=== PATIENT | male | born 1990 | race Caucasian/White ===

== ENCOUNTER 2018-11-22 12:06 | Emergency (ER) | payer SELFPAY ==
[2018-11-22] MEDS ORDERED: IBUPROFEN 800 MG TABLET PO ONE (12:27)
--- NOTE | 2018-11-22 12:29 | ER Document Report ---
ED Medical Screen (RME) - General Chief Complaint: Flu Symptoms Stated Complaint: CHEST/STOMACH PAIN/DIZZINESS Time Seen by Provider: 11/22/18 12:24 - HPI Notes: 11/22/18 12:28 Patient is a 28-year-old male who presents complaining of nasal congestion/discharge, body ache, semi-productive cough, feverish for the past 3 days. Patient states that he does have some soreness in his chest only with coughing. I have treated and performed a rapid initial assessment of this patient. A comprehensive ED assessment and evaluation of the patient, analysis of test results and completion of medical decision making process will be conducted by additional ED providers. PHYSICAL EXAMINATION: GENERAL: Well-appearing, well-nourished and in no acute distress. A&Ox4. Answers questions appropriately. Lung: generally CTAB. no retractions. Heart: RRR Past Medical History - Social History Chew tobacco use (# tins/day): No Frequency of alcohol use: None Physical Exam - Vital signs Vitals: Temp Pulse Resp BP Pulse Ox 97.9 F 87 16 132/85 H 96 11/22/18 12:11/22/18 12:11/22/18 12:11/22/18 12:11/22/18 12:19 Course - Vital Signs Vital signs: Temp Pulse Resp BP Pulse Ox 97.9 F 87 16 132/85 H 96 11/22/18 12:19 11/22/18 12:11/22/18 12:11/22/18 12:11/22/18 12:19
--- NOTE | 2018-11-22 13:04 | RADIOLOGY REPORT (SQ) ---
EXAM DESCRIPTION: CHEST 2 VIEWS COMPLETED DATE/TIME: 11/22/2018 12:54 pm REASON FOR STUDY: cough COMPARISON: None. EXAM PARAMETERS: NUMBER OF VIEWS: two views TECHNIQUE: Digital Frontal and Lateral radiographic views of the chest acquired. RADIATION DOSE: NA LIMITATIONS: none FINDINGS: LUNGS AND PLEURA: No opacities, masses or pneumothorax. No pleural effusion. MEDIASTINUM AND HILAR STRUCTURES: No masses or contour abnormalities. HEART AND VASCULAR STRUCTURES: Heart normal size. No evidence for failure. BONES: No acute findings. HARDWARE: None in the chest. OTHER: No other significant finding. IMPRESSION: No focal consolidation or other evidence of acute cardiopulmonary process. TECHNICAL DOCUMENTATION: JOB ID: [id number] [employer]- All Rights Reserved Reading location - IP/workstation name: [email or web address]
[2018-11-22] MEDS ORDERED: NORMAL SALINE 1000 ML 1,000 ML IV ONE (14:00)
[2018-11-22] MEDS ORDERED: ONDANSETRON 4 MG TAB.RAPDIS PO ONE (14:00)
[2018-11-22 15:17] LABS: ABSOLUTE BASOPHILS # (AUTO) 0.1 10^3/uL (0.0-0.2); ABSOLUTE EOSINOPHILS # (AUTO) 0.3 10^3/uL (0.0-0.6); ABSOLUTE LYMPHOCYTES (AUTO) 2.7 10^3/uL (0.5-4.7); ABSOLUTE MONOCYTES (AUTO) 1.1 10^3/uL (0.1-1.4); ABSOLUTE NEUT (AUTO) 8.2 10^3/uL (1.7-8.2); AMORPHOUS SEDIMENT,URINE TRACE /HPF; APPEARANCE,URINE SLIGHTLY-CLOUDY; BASOPHILS % (AUTO) 0.9 % (0-2); BILIRUBIN,URINE NEGATIVE (NEGATIVE); COLOR,URINE AMBER; EOSINOPHILS % (AUTO) 2.2 % (0-6); GLUCOSE, URINE NEGATIVE (NEGATIVE); HEMATOCRIT 45.7 % (37.9-51.0); HEMOGLOBIN 15.4 g/dL (13.5-17.0); KETONES,URINE NEGATIVE (NEGATIVE); LEUKOCYTE ESTERASE,URINE NEGATIVE (NEGATIVE); LYMPHOCYTES % (AUTO) 21.5 % (13-45); MEAN CORPUSCULAR HEMOGLOBIN 29.6 pg (27.0-33.4); MEAN CORPUSCULAR HGB CONC 33.8 g/dL (32.0-36.0); MEAN CORPUSCULAR VOLUME 88 fl (80-97); NITRITE,URINE NEGATIVE (NEGATIVE); PLATELET COUNT 287 10^3/uL (150-450); PROTEIN,URINE NEGATIVE (NEGATIVE); RED BLOOD COUNT 5.22 10^6/uL (4.35-5.55); SEGMENTED NEUTROPHILS % (AUTO) 66.4 % (42-78); TOTAL CELLS COUNTED % (AUTO) 100 %; URINE SPECIFIC GRAVITY 1.027; WHITE BLOOD COUNT 12.4 10^3/uL (4.0-10.5)
[2018-11-22 15:30] LABS: ALBUMIN 4.5 g/dL (3.5-5.0); ALKALINE PHOSPHATASE 81 U/L (38-126); ANION GAP 7 (5-19); ASPARTATE AMINO TRANSFERASE 23 U/L (17-59); BILIRUBIN,DIRECT 0.1 mg/dL (0.0-0.4); BILIRUBIN,TOTAL 0.6 mg/dL (0.2-1.3); BLOOD UREA NITROGEN 14 mg/dL (7-20); CALCIUM 9.5 mg/dL (8.4-10.2); CARBON DIOXIDE 29 mmol/L (22-30); CHLORIDE 105 mmol/L (98-107); GLUCOSE 84 mg/dL (75-110); POTASSIUM 4.4 mmol/L (3.6-5.0); TOTAL PROTEIN 7.4 g/dL (6.3-8.2)
[2018-11-22] MEDS ORDERED: ACETAMINOPHEN 325 MG TABLET PO ONE (16:39)
--- NOTE | 2018-11-22 16:45 | ER Document Report ---
ED Flu Like - General Chief Complaint: Flu Symptoms Stated Complaint: CHEST/STOMACH PAIN/DIZZINESS Time Seen by Provider: 11/22/18 12:24 Notes: Patient is an otherwise healthy 28-year-old male presents to the emergency department for subjective fever, body aches, cough, congestion, generalized and nausea for the last 3 days. Patient voices his anterior chest wall hurts upon deep palpation, and coughing. Patient's denying any respiratory distress. Is admitting to nausea but is denying any abdominal pain. Patient's denying any dysuria or diarrhea. Patient states he has no medical problems, takes no daily medications, has no allergies. Patient is denying any rash. He is denying being outside for extended period times. Denies any tick bites that he knows of. TRAVEL OUTSIDE OF THE [place] IN LAST 30 DAYS: No - Related Data Allergies/Adverse Reactions: No Known Allergies Allergy (Unverified 11/22/18 12:28) Past Medical History - General Information source: Patient - Social History Smoking Status: Current Every Day Smoker Chew tobacco use (# tins/day): No Frequency of alcohol use: None Family History: Reviewed & Not Pertinent Patient has suicidal ideation: No Patient has homicidal ideation: No Review of Systems - Review of Systems Constitutional: Fever EENT: See HPI Cardiovascular: See HPI Respiratory: See HPI Gastrointestinal: See HPI Genitourinary: No symptoms reported Male Genitourinary: No symptoms reported Musculoskeletal: See HPI Skin: No symptoms reported Hematologic/Lymphatic: No symptoms reported Neurological/Psychological: denies: Headaches Physical Exam - Vital signs Vitals: Temp Pulse Resp BP Pulse Ox 97.9 F 87 16 132/85 H 96 11/22/18 12:19 11/22/18 12:19 11/22/18 12:19 11/22/18 12:19 11/22/18 12:19 - Notes Notes: GENERAL: Morbidly obese, alert, interacts well. No acute distress. HEAD: Normocephalic, atraumatic. EYES: Pupils equal, round, and reactive to light. Extraocular movements intact. ENT: Oral mucosa moist, tongue midline. Nares patent, TM's intact, nonerythematous, nonbulging bilaterally. Pharynx within normal limits no palatal petechiae noted. NECK: Full range of motion. Supple. Trachea midline. No lymphadenopathy appreciated LUNGS: Clear to auscultation bilaterally, no wheezes, rales, or rhonchi. No respiratory distress. HEART: Regular rate and rhythm. No murmur ABDOMEN: Soft, non-tender. Non-distended. Bowel sounds present in all 4 quadrants. EXTREMITIES: Moves all 4 extremities spontaneously. No edema, normal radial and dorsalis pedis pulses bilaterally. No cyanosis. BACK: no cervical, thoracic, lumbar midline tenderness. No saddle anesthesia, normal distal neurovascular exam. NEUROLOGICAL: Alert and oriented x3. Normal speech. cranial nerves II through XII grossly intact PSYCH: Normal affect, normal mood. SKIN: Warm, dry, normal turgor. No rashes or lesions noted. Course - Re-evaluation Re-evalutation: Initial orders placed by RME provider. Patient's EKG shows a sinus rhythm rate of 75, QTC 425, no ST segment elevations or depressions noted read by Dr. Nguyen. Laboratory 11/22/18 11/22/18 11/22/18 14:55 14:55 14:55 WBC 12.4 H RBC 5.22 Hgb 15.4 Hct 45.7 MCV 88 MCH 29.6 MCHC 33.8 RDW 13.0 Plt Count 287 Lymph % (Auto) 21.5 [place] % (Auto) 9.0 Eos % (Auto) 2.2 Baso % (Auto) 0.9 Absolute Neuts (auto) 8.2 Absolute Lymphs (auto) 2.7 Absolute Monos (auto) 1.1 Absolute Eos (auto) 0.3 Absolute Basos (auto) 0.1 Seg Neutrophils % 66.4 Sodium 141.2 Potassium 4.4 Chloride 105 Carbon Dioxide 29 Anion Gap 7 BUN 14 Creatinine 0.76 Est GFR ( Amer) > 60 Est GFR (MDRD) Non-Af > 60 Glucose 84 Calcium 9.5 Total Bilirubin 0.6 Direct Bilirubin 0.1 Neonat Total Bilirubin Not Reportable Neonat Direct Bilirubin Not Reportable Neonat Indirect Bili Not Reportable AST 23 ALT 22 Alkaline Phosphatase 81 Troponin I < 0.012 Total Protein 7.4 Albumin 4.5 Lipase 74.7 Urine Color Urine Appearance Urine pH Ur Specific [place] Urine Protein Urine Glucose (UA) Urine Ketones Urine Blood Urine Nitrite Urine Bilirubin Urine Urobilinogen Ur Leukocyte Esterase Urine WBC (Auto) Urine RBC (Auto) Squamous Epi Cells Auto Amorphous Sediment Auto Urine Mucus (Auto) Urine Ascorbic Acid 11/22/18 14:55 WBC RBC Hgb Hct MCV MCH MCHC RDW Plt Count Lymph % (Auto) [place] % (Auto) Eos % (Auto) Baso % (Auto) Absolute Neuts (auto) Absolute Lymphs (auto) Absolute Monos (auto) Absolute Eos (auto) Absolute Basos (auto) Seg Neutrophils % Sodium Potassium Chloride Carbon Dioxide Anion Gap BUN Creatinine Est GFR ( Amer) Est GFR (MDRD) Non-Af Glucose Calcium Total Bilirubin Direct Bilirubin Neonat Total Bilirubin Neonat Direct Bilirubin Neonat Indirect Bili AST ALT Alkaline Phosphatase Troponin I Total Protein Albumin Lipase Urine Color DEANDRE Urine Appearance SLIGHTLY-CLOUDY Urine pH 5.0 Ur Specific [place] 1.027 Urine Protein NEGATIVE Urine Glucose (UA) NEGATIVE Urine Ketones NEGATIVE Urine Blood NEGATIVE Urine Nitrite NEGATIVE Urine Bilirubin NEGATIVE Urine Urobilinogen 4.0 H Ur Leukocyte Esterase NEGATIVE Urine WBC (Auto) 2 Urine RBC (Auto) 1 Squamous Epi Cells Auto 1 Amorphous Sediment Auto TRACE Urine Mucus (Auto) MANY Urine Ascorbic Acid NEGATIVE Chest X-Ray 11/22/18 12:27 IMPRESSION: No focal consolidation or other evidence of acute cardiopulmonary process. After fluid, nausea medication, Motrin in the emergency department patient voices he overall feels better. Patient also now states he feels as though he may be developing a fever. Patient is requesting Tylenol prior to discharge. Repeat vitals reveal patient is afebrile. At this time will discharge with return precautions and follow-up recommendations. Verbal discharge instructions given a the bedside and opportunity for questions given. Medication warnings reviewed. Patient is in agreement with this plan and has verbalized understanding of return precautions and the need for primary care follow-up in the next 24-72 hours. This medical record was dictated with voice recognizing software. There may be grammatical, syntax errors that are unintended. - Vital Signs Vital signs: Temp Pulse Resp BP Pulse Ox 97.9 F 87 16 132/85 H 96 11/22/18 12:19 11/22/18 12:19 11/22/18 12:19 11/22/18 12:19 11/22/18 12:19 - Laboratory Result Diagrams: 11/22/18 14:55 11/22/18 14:55 Laboratory results interpreted by me: 11/22/18 11/22/18 14:55 14:55 WBC 12.4 H Urine Urobilinogen 4.0 H Discharge - Discharge Clinical Impression: Viral syndrome, Nausea Upper respiratory infection Qualifiers: URI type: unspecified viral URI Qualified Code(s): J06.9 - Acute upper respiratory infection, unspecified Condition: Stable Disposition: HOME, SELF-CARE Instructions: Upper Respiratory Illness ([facility]), Viral Syndrome ([facility]), Nausea or Vomiting, Nonspecific ([facility]) Additional Instructions: As we discussed you have been seen and treated in the emergency department for a viral illness. Your symptoms are likely due to a virus. The do not respond to antibiotics. Please make sure you are taking [id number] Tylenol or Motrin for generalized fevers and body aches. Please also make sure you are staying well-hydrated and get putting a rest. Please use nausea medication as prescribed. Please follow-up with your primary care provider in the next 24 to 48 hours. Return to the emergency room for any concerns. Prescriptions: Ondansetron [Zofran Odt 4 mg Tablet] 1 - 2 tab PO Q6 PRN #16 tab.rapdis PRN Reason: For Nausea/Vomiting Forms: Return to Work Referrals: [facility] [Provider Group] - Follow up as needed [facility] [Provider Group] - Follow up as needed
[2018-11-22 17:27] VITALS: BP 115/69
--- NOTE | 2018-11-23 00:29 | EKG REPORT ---
SEVERITY:- NORMAL ECG - SINUS RHYTHM : Confirmed by: Malinda Phelps MD 23-Nov-2018 00:28:28
== END 2018-11-22 17:22 | disposition home or self-care (01) ==
LOC: ER 12:06
DX: J06.9 Acute upper respiratory infection, unspecified (principal); B34.9 Viral infection, unspecified; R50.9 Fever, unspecified; M79.10 Myalgia, unspecified site; R05 Cough; R11.0 Nausea; F17.200 Nicotine dependence, unspecified, uncomplicated
CPT/HCPCS: 93005; 36415; 83690; 85025; 80053; 81001; 84484; 71046; 93010; S0119; J7030; 96360; 99284

== ENCOUNTER 2019-05-16 09:07 | Emergency (ER) | payer SELFPAY ==
[2019-05-16 09:30] VITALS: BP 144/80
--- NOTE | 2019-05-16 09:42 | ER Document Report ---
HPI - HPI Time Seen by Provider: 05/16/19 09:11 Onset: Yesterday Onset/Duration: Gradual Quality of pain: Fullness Pain Level: 5 Notes: This 28-year-old male presents to the emergency room today stating that he had ear pain and fullness with bleeding of the ear noted in the shower. He also has fullness in his sinus cavities scantly sore throat and pain in the rear of the occiput. His was recently diagnosed with tonsillitis put on amoxicillin. - CONSTITUTIONAL Constitutional: DENIES: Fever - EENT EENT: REPORTS: Ear Pain - right. DENIES: Sore Throat, Eye problems - NEURO Neurology: Comment Only: Headache - not reported Past Medical History - Social History Smoking Status: Current Every Day Smoker Frequency of alcohol use: Occasional Drug Abuse: None Family History: Reviewed & Not Pertinent Patient has suicidal ideation: No Patient has homicidal ideation: No Psychiatric Medical History: Reports: Hx Attention Deficit Hyperactivity Disorder, Hx Depression - anxiety Vertical Provider Document - INFECTION CONTROL TRAVEL OUTSIDE OF THE [place] IN LAST 30 DAYS: No Course - Re-evaluation Re-evalutation: 05/16/19 10:22 Long conversation was had with the patient informing him that he did not fact have reactive airway disease and otitis media. Patient was concerned about the headache and requested a CAT scan we discussed that I oblige his request told that I would certainly perform the CAT scan although I comfortable with the diagnosis. CT as reported patient was discharged on Augmentin with Claritin.. - Vital Signs Vital signs: Temp Pulse Resp BP Pulse Ox 98.1 F 70 16 144/80 H 98 05/16/19 09:15 05/16/19 09:15 05/16/19 09:15 05/16/19 09:15 05/16/19 09:15 - Diagnostic Test Radiology results interpreted by me: 05/16/19 10:[address] 05/16/19 09:40 IMPRESSION: NORMAL BRAIN CT WITHOUT CONTRAST. EVIDENCE OF ACUTE STROKE: NO. Discharge - Discharge Clinical Impression: Reactive airway disease Qualifiers: Asthma severity: moderate Asthma persistence: persistent Disposition: HOME, SELF-CARE Instructions: Reactive Airway Disease ([facility]), Otitis Media ([facility]) Prescriptions: Amoxicillin/Potassium Clav [Augmentin 875-125 Tablet] 1 tab PO Q12 #20 tablet Loratadine [Claritin] 10 mg PO QAM #30 capsule
--- NOTE | 2019-05-16 10:19 | RADIOLOGY REPORT (SQ) ---
EXAM DESCRIPTION: CT HEAD WITHOUT COMPLETED DATE/TIME: 05/16/2019 9:51 am REASON FOR STUDY: paimn COMPARISON: None. TECHNIQUE: Axial images acquired through the brain without intravenous contrast. Images reviewed wi th bone, brain and subdural windows. Additional sagittal and coronal reconstructions were generated. Images stored on PACS. All CT scanners at this facility use dose modulation, iterative reconstruction, and/or weight based d osing when appropriate to reduce radiation dose to as low as reasonably achievable (ALARA). [facility]: Dose Right [facility]: CareDose [facility]: Dose Right [facility]: Teradose 4D [facility]: [place] RADIATION DOSE: CT Rad equipment meets quality standard of care and radiation dose reduction techniq ues were employed. CTDIvol: 53.2 mGy. DLP: 1097 mGy-cm. mGy. LIMITATIONS: None. FINDINGS: VENTRICLES: Normal size and contour. CEREBRUM: No masses. No hemorrhage. No midline shift. No evidence for acute infarction. Normal gra y/white matter differentiation. No areas of low density in the white matter. CEREBELLUM: No masses. No hemorrhage. No alteration of density. No evidence for acute infarction. EXTRAAXIAL SPACES: No fluid collections. No masses. ORBITS AND GLOBE: No intra- or extraconal masses. Normal contour of globe without masses. CALVARIUM: No fracture. PARANASAL SINUSES: No fluid or mucosal thickening. SOFT TISSUES: No mass or hematoma. OTHER: No other significant finding. IMPRESSION: NORMAL BRAIN CT WITHOUT CONTRAST. EVIDENCE OF ACUTE STROKE: NO. COMMENT: Quality ID # [id number]: Final reports with documentation of one or more dose reduction techniques (e.g., Automated exposure control, adjustment of the mA and/or kV according to patient size, use of iterative reconstruction technique) TECHNICAL DOCUMENTATION: JOB ID: [id number] 2010 [employer]- All Rights Reserved Reading location - IP/workstation name: [email or web address]
== END 2019-05-16 10:32 | disposition home or self-care (01) ==
LOC: ER 09:07
DX: J45.40 Moderate persistent asthma, uncomplicated (principal); H66.90 Otitis media, unspecified, unspecified ear; R51 Headache; F17.200 Nicotine dependence, unspecified, uncomplicated
CPT/HCPCS: 70450; 99283

== ENCOUNTER 2019-06-28 21:41 | Emergency (ER) | payer SELFPAY ==
[2019-06-28] MEDS ORDERED: METOCLOPRAMIDE HCL 10 MG TABLET PO ONE (21:54)
--- NOTE | 2019-06-28 21:57 | ER Document Report ---
ED Medical Screen (RME) - General Chief Complaint: Chest Pain Stated Complaint: CHEST PAIN/NAUSEA Time Seen by Provider: 06/28/19 21:54 Mode of Arrival: Ambulatory Information source: Patient Notes: 28-year-old male with history of "stomach issues "presents to the emergency department with complaints of abdominal pain radiating into his chest. Reports symptoms started approximately 20 to 30 minutes ago. He reports he was just sitting there when it started happening. Patient did eat within the past hour. Reports he has had this before. Reports they have tried given GI cocktail without success because he is unable to swallow it. He reports Reglan helps him more than the Zofran. He reports he has used cocaine in the past 8 years twice. Denies history of cardiac disease. Denies fever reports really nauseated. Epigastric abdominal pain tender to palpate I have greeted and performed a rapid initial assessment of this patient. A comprehensive ED assessment and evaluation of the patient, analysis of test results and completion of the medical decision making process will be conducted by additional ED providers. TRAVEL OUTSIDE OF THE [place] IN LAST 30 DAYS: No - Related Data Allergies/Adverse Reactions: No Known Allergies Allergy (Verified 05/16/19 09:13) Past Medical History Psychiatric Medical History: Reports: Hx Attention Deficit Hyperactivity Disorder, Hx Depression - anxiety
[2019-06-28 22:50] LABS: ABSOLUTE BASOPHILS # (AUTO) 0.1 10^3/uL (0.0-0.2); ABSOLUTE EOSINOPHILS # (AUTO) 0.2 10^3/uL (0.0-0.6); ABSOLUTE LYMPHOCYTES (AUTO) 4.7 10^3/uL (0.5-4.7); ABSOLUTE NEUT (AUTO) 8.1 10^3/uL (1.7-8.2); EOSINOPHILS % (AUTO) 1.7 % (0-6); HEMATOCRIT 42.2 % (37.9-51.0); HEMOGLOBIN 14.7 g/dL (13.5-17.0); MEAN CORPUSCULAR HGB CONC 34.8 g/dL (32.0-36.0); MEAN CORPUSCULAR VOLUME 86 fl (80-97); MONOCYTES % (AUTO) 7.3 % (3-13); PLATELET COUNT 295 10^3/uL (150-450); RED BLOOD COUNT 4.89 10^6/uL (4.35-5.55); RED CELL DISTRIBUTION WIDTH 12.4 % (11.5-14.0); TOTAL CELLS COUNTED % (AUTO) 100 %; WHITE BLOOD COUNT 14.3 10^3/uL (4.0-10.5)
[2019-06-28] MEDS ORDERED: PROCHLORPERAZINE EDISYLATE INJ 10 MG/2 ML VIAL IV ONE (22:52)
[2019-06-28] MEDS ORDERED: KETOROLAC TROMETHAMINE INJ/PF 30 MG/1 ML SDV IV ONE (22:53)
[2019-06-28 23:02] LABS: ALBUMIN 3.6 g/dL (3.5-5.0); ALKALINE PHOSPHATASE 50 U/L (38-126); ANION GAP 6 (5-19); ASPARTATE AMINO TRANSFERASE 22 U/L (17-59); BILIRUBIN,TOTAL 0.3 mg/dL (0.2-1.3); BLOOD UREA NITROGEN 18 mg/dL (7-20); CALCIUM 8.5 mg/dL (8.4-10.2); CARBON DIOXIDE 24 mmol/L (22-30); CHLORIDE 110 mmol/L (98-107); GLUCOSE 110 mg/dL (75-110); POTASSIUM 3.6 mmol/L (3.6-5.0); TOTAL PROTEIN 5.8 g/dL (6.3-8.2)
[2019-06-28 23:06] LABS: APPEARANCE,URINE CLEAR; BILIRUBIN,URINE NEGATIVE (NEGATIVE); COLOR,URINE YELLOW; GLUCOSE, URINE NEGATIVE (NEGATIVE); KETONES,URINE NEGATIVE (NEGATIVE); LEUKOCYTE ESTERASE,URINE NEGATIVE (NEGATIVE); NITRITE,URINE NEGATIVE (NEGATIVE); PROTEIN,URINE NEGATIVE (NEGATIVE)
--- NOTE | 2019-06-28 23:20 | RADIOLOGY REPORT (SQ) ---
XR CHEST 1 VIEW EXAM DATE: 06/28/2019 9:54 PM CDT HISTORY: Chest pain. COMPARISON: None. FINDINGS: The heart size is within normal limits. There is no pulmonary vascular congestion. No consolidation, pleural effusion, or pneumothorax is seen. The bony structures are intact. IMPRESSION: No evidence of acute cardiopulmonary disease.
[2019-06-28 23:26] LABS: URINE AMPHETAMINES SCREEN NEGATIVE; URINE BARBITURATES SCREEN NEGATIVE; URINE BENZODIAZEPINES SCREEN NEGATIVE; URINE COCAINE SCREEN NEGATIVE; URINE MARIJUANA (THC) SCREEN NEGATIVE; URINE METHADONE SCREEN NEGATIVE; URINE PHENCYCLIDINE SCREEN NEGATIVE
[2019-06-29] MEDS ORDERED: LORAZEPAM INJ 2 MG/1 ML VIAL IV ONE (00:07)
--- NOTE | 2019-06-29 00:19 | RADIOLOGY REPORT (SQ) ---
EXAM DESCRIPTION: US ABDOMEN LIMITED COMPLETED DATE/TME: 06/28/2019 22:54 CLINICAL HISTORY: 28 years Male, Epigastric pain Comparison: None. LIMITATIONS: Bowel gas and body habitus artifact. FINDINGS: Cholelithiasis, wall echo shadow triad, partially obscured gallbladder, negative sonographic Benton's test, partially visualized liver, a 0.5-cm diameter common bile duct, no intrahepatic ductal dilation, hepatopetal patent flow of the portal vein, 12.5-cm right kidney, pancreas, visualized vasculature/abdominal aorta, and no significant ascites appear otherwise unremarkable. IMPRESSION: No acute findings. Cholelithiasis. Limitation.
--- NOTE | 2019-06-29 01:09 | ER Document Report ---
ED General - General Chief Complaint: Chest Pain Stated Complaint: CHEST PAIN/NAUSEA Time Seen by Provider: 06/28/19 21:54 Mode of Arrival: Ambulatory Information source: Patient Notes: 28-year-old man presents to the emergency department with a complaint of nausea and gastric abdominal discomfort radiating into his chest area. States that he ate a meal with his and soon afterwards began having symptoms of nausea and abdominal pain. His had no symptoms and so his thoughts of food poisoning were not confirmed. He presents to the emergency department for evaluation of this discomfort and nausea. TRAVEL OUTSIDE OF THE [place] IN LAST 30 DAYS: No - Related Data Allergies/Adverse Reactions: No Known Allergies Allergy (Verified 05/16/19 09:13) Past Medical History - General Information source: Patient - Social History Smoking Status: Never Smoker Chew tobacco use (# tins/day): No Frequency of alcohol use: Occasional Drug Abuse: None Family History: Reviewed & Not Pertinent Patient has homicidal ideation: No Psychiatric Medical History: Reports: Hx Attention Deficit Hyperactivity Disorder, Hx Depression - anxiety Review of Systems - Review of Systems Notes: Constitutional: + Obesity HENT: Negative for sore throat. Eyes: Negative for visual changes. Cardiovascular: Negative for chest pain. Respiratory: Negative for shortness of breath. Gastrointestinal: + Epigastric pain, + nausea but no vomiting Genitourinary: Negative for dysuria. Musculoskeletal: Negative for back pain. Skin: Negative for rash. Neurological: Negative for headaches, weakness or numbness. 10 point ROS negative except as marked above and in HPI. Physical Exam - Vital signs Vitals: Temp 97.6 F 06/28/19 21:55 - Notes Notes: PHYSICAL EXAMINATION: Physical Exam: General: Well-nourished well-developed obese 28-year-old man in no acute distress HEENT: NC/AT, pupils equal round and reactive to light, MM moist,nares clear, oropharynx clear, airway patent Neck: supple, no adenopathy, no masses. Good range of motion Lungs: clear, no wheezing, no rales no rhonchi CVS: Regular rate and rhythm no murmur gallop or rub Abdomen: Soft, active, + right upper quadrant tenderness and mid epigastric tenderness on exam. Bowel sounds, no guarding, no rebound Ext: No edema, clubbing or cyanosis. Neuro: Alert and responsive, moving all 4 extremities on command, cranial nerves intact, no focal findings Skin: Intact no open lesions, no rash PSYCH: Normal mood, normal affect. Course - Re-evaluation Re-evalutation: 06/29/19 01:06 Ultrasound positive for gallstones, patient refuses CT scan stating that he feels better and would like to go home to his . I have explained to him that the gallstones may have been the cause of his symptoms, gallbladder colic. With normal LFTs and with a mildly elevated white blood cell count, he is being discharged home with the understanding that his symptoms return or if they are worsening he may return to the emergency department for further evaluation and treatment. - Vital Signs Vital signs: Temp Pulse Resp BP Pulse Ox 97.6 F 84 28 H 132/82 H 97 06/28/19 21:58 06/28/19 21:58 06/28/19 22:25 06/28/19 21:58 06/28/19 22:25 - Laboratory Result Diagrams: 06/28/19 22:34 06/28/19 22:34 Laboratory results interpreted by me: 06/28/19 06/28/19 06/28/19 22:34 22:34 22:34 WBC 14.3 H Chloride 110 H POC Glucose Total Protein 5.8 L Urine Urobilinogen 4.0 H 06/29/19 00:02 WBC Chloride POC Glucose 111 H Total Protein Urine Urobilinogen 06/29/19 01:07 I have reviewed laboratory data and used this information for the treatment decisions regarding the patient. - Diagnostic Test Radiology reviewed: Image reviewed, Reports reviewed - Chest x-ray: No acute findings Gallbladder ultrasound: Cholelithiasis, no sign of cholecystitis. - EKG Interpretation by [facility] EKG shows normal: Sinus rhythm - Rate of 76, no acute ST or T wave abnormalities. Interpretation: Normal electrocardiogram Discharge - Discharge Clinical Impression: Gallbladder colic Cholelithiasis Qualifiers: Cholelithiasis location: gallbladder Cholecystitis presence: without cholecystitis Biliary obstruction: without biliary obstruction Qualified C ode(s): K80.20 - Calculus of gallbladder without cholecystitis without obstruction Condition: Good Disposition: HOME, SELF-CARE Instructions: Toradol Injection ([facility]), Antispasmodics ([facility]), Gallbladder Disease ([facility]) Additional Instructions: You were diagnosed with pain in your abdomen that is likely related to gallstones. Your work-up today does not show any signs that you need to have your gallbladder removed tonight. A prescription for an acid tod and antispasmodic medication are given tonight. If you are continuing to have difficulties follow-up with a general surgeon would be advised. The name of the surgeon general contractor is given as a referral. You may contact their office for further evaluation. HOME CARE INSTRUCTIONS & INFORMATION: Thank you for choosing us for your medical needs. We hope you're satisfied with the care you received. After you leave, you must properly care for your problem and, at the same time, observe its progress. Any condition can change. Some illnesses can change rapidly over hours or days. If your condition worsens, return to the Emergency Department or see your physician promptly. ABOUT YOUR X-RAYS AND EKG'S: If you had an EKG or X-rays taken, they have been read by the Emergency Physician. The X-rays and EKG's will also be read by a Radiologist or [employer] within 24 hours. If discrepancies are noted, you will be notified by telephone. Please be certain the ED has a correct telephone number & address where you can be reached. Also, realize that some fractures or abnormalities do not show up on initial X-rays. If your symptoms continue, see your physician. ABOUT YOUR LABORATORY TEST: If you had laboratory tests, the results have been reviewed by the Emergency Physician. Some test results (for example cultures) may not be available for several days. You will be contacted if any test result shows you need additional treatment. Please be certain the ED has a correct telephone number and address where you can be reached. ABOUT YOUR MEDICATIONS: You will receive instructions on how to take your me dicine on the prescription label you receive. Additional information may be provided by the Pharmacy. If you have questions afterwards, call the ED for clarification or further instructions. Some prescribed medications may cause drowsiness. Do not perform tasks such as driving a car or operating machinery without consulting your Pharmacist. If you feel you need a refill of pain medication, your condition will need re-evaluation. Please do not call for a refill of any medication. ABOUT YOUR SIGNATURE: Signature of this document acknowledges to followin. Understanding that you received emergency treatment and that you may be released before al medical problems are known or treated. Please be certain the ED has a correct phone number & address where you can be reached. 2. Acknowledgement that you will arrange for follow-up care as recommended. 3. Authorization for the Emergency Physician to provide information to your follow-up Physician in order to maximize your care. AT ANY TIME, IF YOUR SYMPTOMS CHANGE SIGNIFICANTLY OR WORSEN OR YOU DEVELOP NEW SYMPTOMS, RETURN TO THE EMERGENCY DEPARTMENT IMMEDIATELY FOR RE-EVALUATION. OUR GOAL IS TO PROVIDE EXCELLENT MEDICAL CARE! WE HOPE THAT WE HAVE MET YOUR EXPECTATIONS DURING YOUR EMERGENCY DEPARTMENT VISIT AND THAT YOU FEEL YOU HAVE RECEIVED EXCELLENT CARE! Prescriptions: Dicyclomine HCl [Bentyl 10 mg Capsule] 1 cap PO TID PRN #20 cap PRN Reason: Abdominal Cramping Omeprazole 40 mg PO DAILY #20 capsule.dr Referrals: RAJEEV BROOKS MD [ACTIVE STAFF] - Follow up as needed
[2019-06-29 01:35] VITALS: BP 111/64
--- NOTE | 2019-06-29 19:55 | EKG REPORT ---
SEVERITY:- NORMAL ECG - SINUS RHYTHM : Confirmed by: Steve Hargrove MD 29-Jun-2019 19:54:37
== END 2019-06-29 01:36 | disposition home or self-care (01) ==
LOC: ER 21:41
DX: K80.20 Calculus of gallbladder without cholecystitis without obstruction (principal); R11.0 Nausea; R10.13 Epigastric pain; R10.811 Right upper quadrant abdominal tenderness; R10.816 Epigastric abdominal tenderness; D72.829 Elevated white blood cell count, unspecified; E66.9 Obesity, unspecified
CPT/HCPCS: 93005; 99284; 96374; 96375; 36415; 82962; 83690; 85025; 80053; 81001; 84484; 80307; 71045; 76705; 93010; J1885; J2060; J0780

== ENCOUNTER 2019-07-20 11:23 | Emergency (ER) | payer SELFPAY ==
--- NOTE | 2019-07-20 11:50 | ER Document Report ---
ED Medical Screen (RME) - General Chief Complaint: Abdominal Pain Stated Complaint: ABDOMINAL PAIN Mode of Arrival: Ambulatory Information source: Patient Notes: 28-year-old male presented to ED for epigastric abdominal pain. He states he was seen recently and told he had gallstones in his gallbladder. He is asking for something to dissolve the gallstones so that he does not have to have surgery. I have gone over the fact that there is no medication to dissolve gallstones. He states he is having increasing pain and discomfort. We will repeat the lab work for the gallbladder. Patient is alert oriented respirations regular nonlabored speaking in full sentences. I have greeted and performed a rapid initial assessment of this patient. A comprehensive ED assessment and evaluation of the patient, analysis of test results and completion of medical decision making process will be conducted by an additional ED providers. TRAVEL OUTSIDE OF THE [place] IN LAST 30 DAYS: No - Related Data Allergies/Adverse Reactions: No Known Allergies Allergy (Verified 07/20/19 11:38) Past Medical History Psychiatric Medical History: Reports: Hx Attention Deficit Hyperactivity Disorder, Hx Depression - anxiety Physical Exam - Vital signs Vitals: Temp Pulse Resp BP Pulse Ox 98.4 F 79 18 127/98 H 97 07/20/19 11:07/20/19 11:07/20/19 11:07/20/19 11:07/20/19 11:26 Course - Vital Signs Vital signs: Temp Pulse Resp BP Pulse Ox 98.4 F 79 18 127/98 H 97 07/20/19 11:07/20/19 11:07/20/19 11:07/20/19 11:07/20/19 11:26
[2019-07-20 12:32] LABS: ABSOLUTE BASOPHILS # (AUTO) 0.1 10^3/uL (0.0-0.2); ABSOLUTE EOSINOPHILS # (AUTO) 0.2 10^3/uL (0.0-0.6); ABSOLUTE LYMPHOCYTES (AUTO) 2.8 10^3/uL (0.5-4.7); ABSOLUTE MONOCYTES (AUTO) 0.7 10^3/uL (0.1-1.4); ABSOLUTE NEUT (AUTO) 5.4 10^3/uL (1.7-8.2); BASOPHILS % (AUTO) 0.9 % (0-2); HEMATOCRIT 44.5 % (37.9-51.0); LYMPHOCYTES % (AUTO) 30.9 % (13-45); MEAN CORPUSCULAR HEMOGLOBIN 30.7 pg (27.0-33.4); MEAN CORPUSCULAR HGB CONC 35.9 g/dL (32.0-36.0); MEAN CORPUSCULAR VOLUME 86 fl (80-97); MONOCYTES % (AUTO) 7.4 % (3-13); PLATELET COUNT 283 10^3/uL (150-450); RED CELL DISTRIBUTION WIDTH 12.6 % (11.5-14.0); SEGMENTED NEUTROPHILS % (AUTO) 58.8 % (42-78); TOTAL CELLS COUNTED % (AUTO) 100 %; WHITE BLOOD COUNT 9.1 10^3/uL (4.0-10.5)
--- NOTE | 2019-07-20 12:37 | ER Document Report ---
ED General - General Chief Complaint: Abdominal Pain Stated Complaint: ABDOMINAL PAIN Time Seen by Provider: 07/20/19 11:53 Primary Care Provider: RAJEEV BROOKS MD [ACTIVE STAFF] - Follow up as needed Mode of Arrival: Ambulatory Information source: Patient TRAVEL OUTSIDE OF THE [place] IN LAST 30 DAYS: No - HPI Notes: Patient presents complaining of epigastric pain. He states it was severe earlier but is better now. It was intermittent. Is made worse by eating and better when he does not eat. He gets some nausea with it but no vomiting or diarrhea. It is a sharp and burning pain. Patient had a recent gallbladder ult rasound that showed gallstones approxi-1 month ago. He states he has not followed up with a surgeon because he does not have insurance at this time. He also has had some gas and bloating. - Related Data Allergies/Adverse Reactions: No Known Allergies Allergy (Verified 07/20/19 11:38) Past Medical History - General Information source: Patient - Social History Smoking Status: Current Every Day Smoker Frequency of alcohol use: None Drug Abuse: None Family History: Reviewed & Not Pertinent Patient has homicidal ideation: No Psychiatric Medical History: Reports: Hx Attention Deficit Hyperactivity Disorder, Hx Depression - anxiety Review of Systems - Review of Systems Constitutional: denies: Chills, Fever Cardiovascular: denies: Chest pain, Palpitations Respiratory: denies: Cough, Short of breath -: Yes All other systems reviewed and negative Physical Exam - Vital signs Vitals: Temp Pulse Resp BP Pulse Ox 98.4 F 79 18 127/98 H 97 07/20/19 11:26 07/20/19 11:26 07/20/19 11:26 07/20/19 11:26 07/20/19 11:26 Interpretation: Normal - General General appearance: Appears well, Alert - HEENT Head: Normocephalic, Atraumatic Eyes: Normal Pupils: PERRL - Respiratory Respiratory status: No respiratory distress Chest status: Nontender Breath sounds: Normal Chest palpation: Normal - Cardiovascular Rhythm: Regular Heart sounds: Normal auscultation Murmur: No - Abdominal Inspection: Normal Distension: No distension Bowel sounds: Normal Tenderness: Tender - Mild epigastric tenderness to palpation hereon I wrote the note, to social Holter ready for this admitting notes for uteri Organomegaly: No organomegaly - Back Back: Normal, Nontender - Extremities General upper extremity: Normal inspection, Nontender, Normal color, Normal ROM, Normal temperature General lower extremity: Normal inspection, Nontender, Normal color, Normal ROM, Normal temperature, Normal weight bearing. No: Jasper's sign - Neurological Neuro grossly intact: Yes Cognition: Normal Orientation: AAOx4 Alexi Coma Scale Eye Opening: Spontaneous Alexi Coma Scale Verbal: Oriented [place] Coma Scale Motor: Obeys Commands [place] Coma Scale Total: 15 Speech: Normal Motor strength normal: LUE, RUE, LLE, RLE Sensory: Normal - Psychological Associated symptoms: Normal affect, Normal mood - Skin Skin Temperature: Warm Skin Moisture: Dry Skin Color: Normal Course - Re-evaluation Re-evalutation: 07/20/19 12:34 Patient had some epigastric pain earlier that is now resolved. It happened after eating and seems most consistent with a hiatal hernia. I did discuss hiatal hernia as well as gallbladder disease with the patient. I will refer him to surgery, send him home with nausea medicine and pain medicine. - Vital Signs Vital signs: Temp Pulse Resp BP Pulse Ox 98.4 F 79 18 127/98 H 97 07/20/19 11:40 07/20/19 11:26 07/20/19 11:26 07/20/19 11:26 07/20/19 11:26 - Laboratory Result Diagrams: 07/20/19 11:55 07/20/19 11:55 Laboratory results interpreted by me: 07/20/19 11:55 Chloride 108 H Discharge - Discharge Clinical Impression: Acute epigastric pain Condition: Stable Disposition: HOME, SELF-CARE Instructions: Abdominal Pain ([facility]), Gallbladder Disease ([facility]) Prescriptions: Dicyclomine HCl [Bentyl 20 mg Tablet] 20 mg PO BID PRN 5 Days #10 tablet PRN Reason: Omeprazole 40 mg PO DAILY 15 Days #15 capsule. Metoclopramide HCl [Reglan 10 mg Tablet] 1 tab PO Q6 #25 tablet Tramadol HCl [Ultram] 50 mg PO Q6 PRN 3 Days #12 tablet PRN Reason: Forms: Return to Work Referrals: RAJEEV BROOKS MD [ACTIVE STAFF] - Follow up as needed
[2019-07-20 12:44] LABS: ALBUMIN 4.1 g/dL (3.5-5.0); ALKALINE PHOSPHATASE 58 U/L (38-126); ANION GAP 7 (5-19); ASPARTATE AMINO TRANSFERASE 33 U/L (17-59); BILIRUBIN,TOTAL 0.7 mg/dL (0.2-1.3); BLOOD UREA NITROGEN 13 mg/dL (7-20); CALCIUM 9.1 mg/dL (8.4-10.2); CARBON DIOXIDE 25 mmol/L (22-30); CHLORIDE 108 mmol/L (98-107); GLUCOSE 87 mg/dL (75-110); POTASSIUM 4.5 mmol/L (3.6-5.0); TOTAL PROTEIN 6.6 g/dL (6.3-8.2)
[2019-07-20 13:36] VITALS: BP 127/74
== END 2019-07-20 13:36 | disposition home or self-care (01) ==
LOC: ER 11:23
DX: R10.13 Epigastric pain (principal); R10.816 Epigastric abdominal tenderness; F17.200 Nicotine dependence, unspecified, uncomplicated
CPT/HCPCS: 36415; 80053; 83690; 85025; 87086; 99284

== ENCOUNTER 2019-12-28 17:34 | Emergency (ER) | payer SELFPAY ==
[2019-12-28 17:58] VITALS: BP 139/93
== END 2019-12-28 19:04 | disposition left against medical advice (07) ==
LOC: ER 17:34
DX: Z53.21 Procedure and treatment not carried out due to patient leaving prior to being seen by health care provider (principal)